=== PATIENT | female | born 1965 | race Asian ===

== ENCOUNTER 2018-06-25 12:28 | Day surgery (SDC) | END 2018-06-25 17:02 | disposition home or self-care (01) ==

== ENCOUNTER 2018-11-10 08:47 | Observation (INO) | payer BC ==
[~2018-11-10] VITALS: Ht 157.5 cm; Wt 64.7 kg
[~2018-11-10 08:47] MED LIST: NO MEDS
[2018-11-10] MEDS ORDERED: NITROGLYCERIN 2% 1 GM OINT PKT TD STA (09:25)
[2018-11-10] MEDS ORDERED: ASPIRIN 81 MG TAB PO STA (09:25)
[2018-11-10] MEDS ORDERED: NITROGLYCERIN (SL) 0.4 MG TAB SL PRN ×2 (09:30→12:30)
[2018-11-10] MEDS ORDERED: ONDANSETRON 4 MG INJ IV PRN ×2 (12:00→12:30)
[2018-11-10] MEDS ORDERED: ACETAMINOPHEN 325 MG TAB PO PRN (12:00)
[2018-11-10] MEDS ORDERED: ALBUTEROL/IPRATROPIUM (NEB) 3 ML AMP HHN PRN (12:30)
[2018-11-10] MEDS ORDERED: MAGNESIUM HYDROXIDE 30ML CUP PO PRN (12:30)
[2018-11-10] MEDS ORDERED: NACL 0.9% 3 ML SYG IV SCH (12:30)
[2018-11-10] MEDS ORDERED: hydrALAzine 20 MG INJ IV PRN (12:30)
[2018-11-10] MEDS ORDERED: HYDROCODONE/APAP (5/325) TAB PO PRN (12:30)
[2018-11-10] MEDS ORDERED: morphine 2 MG INJ IV PRN (12:30)
[2018-11-10] MEDS ORDERED: DOCUSATE SODIUM 100 MG CAP PO PRN (12:30)
[2018-11-10] MEDS ORDERED: LORAZEPAM 2 MG INJ IV PRN (12:30)
--- NOTE | 2018-11-10 12:35 | ERD ---
ER Documentation Chief Complaint Chief Complaint CHEST PAIN X3 DAYS, RADIATES TO LEFT ARM HPI Patient is a 53-year-old female with high cholesterol presents with chest pain. The patient has left-sided chest pain and left arm pain. She describes it as a "pinching pain". She has shortness of breath as well. She said the symptoms started 3 days ago and have been constant. She denies treatment as of yet. Upon review of old medical records this is the patient's third visit to the ER since 2013. She does not remember the name of her primary doctor. ROS All systems reviewed and are negative except as per history of present illness. Medications Home Meds Discontinued Reported Medications [No Meds] No Conflict Check 06/25/18 Allergies Allergies: Coded Allergies: No Known Allergy (Unverified , 11/10/18) PMhx/Soc History of Surgery: No Anesthesia Reaction: No Hx Neurological Disorder: No Hx Respiratory Disorders: No Hx Cardiac Disorders: No Hx Psychiatric Problems: No Hx Miscellaneous Medical Probl: No Hx Alcohol Use: Yes (OCCASIONAL) Hx Substance Use: No Hx Tobacco Use: No Smoking Status: Never smoker FmHx Family History: No coronary disease Physical Exam Vitals Vital Signs Date Temp Pulse Resp B/P (MAP) Pulse Ox O2 O2 Flow FiO2 Time Delivery Rate 11/10/18 Nasal 09:00 Cannula 11/10/18 97.8 102 16 141/92 100 08:51 (108) Physical Exam Const: No acute distress Head: Atraumatic Eyes: Normal Conjunctiva ENT: Normal External Ears, Nose and Mouth. Neck: Full range of motion. No meningismus. Resp: Clear to auscultation bilaterally Cardio: Regular rate and rhythm, no murmurs Abd: Soft, non tender, non distended. Normal bowel sounds Skin: No petechiae or rashes Back: No midline or flank tenderness Ext: No cyanosis, or edema Neur: Awake and alert Psych: Normal Mood and Affect Result Diagram: 11/10/1892911/10/18929 Results 24 hrs Laboratory Tests Test 11/10/18 09:30 White Blood Count 8.6 10^3/ul Red Blood Count 4.77 10^6/ul Hemoglobin 13.3 g/dl Hematocrit 40.7 % Mean Corpuscular Volume 85.3 fl Mean Corpuscular Hemoglobin 27.9 pg Mean Corpuscular Hemoglobin Concent 32.7 g/dl Red Cell Distribution Width 13.1 % Platelet Count 305 10^3/UL Mean Platelet Volume 9.4 fl Immature Granulocytes % 0.200 % Neutrophils % 61.7 % Lymphocytes % 30.2 % Monocytes % 5.2 % Eosinophils % 2.1 % Basophils % 0.6 % Nucleated Red Blood Cells % 0.0 /100WBC Immature Granulocytes # 0.020 10^3/ul Neutrophils # 5.3 10^3/ul Lymphocytes # 2.6 10^3/ul Monocytes # 0.5 10^3/ul Eosinophils # 0.2 10^3/ul Basophils # 0.1 10^3/ul Nucleated Red Blood Cells # 0.0 10^3/ul Sodium Level 144 mmol/L Potassium Level 3.7 mmol/L Chloride Level 105 mmol/L Carbon Dioxide Level 28 mmol/L Anion Gap 11 Blood Urea Nitrogen 16 mg/dl Creatinine 0.65 mg/dl Est Glomerular Filtrat Rate mL/min > 60 mL/min Glucose Level 76 mg/dl Calcium Level 10.0 mg/dl Troponin I < 0.012 ng/ml Current Medications Medications Dose Sig/Kori Start Time Status Last (Trade) Ordered Route PRN Stop Time Admin Dose Reason Admin Aspirin 162 mg ONCE STAT 11/10/18 DC 11/10/18 (Aspirin) PO 09:25 09:53 11/10/18 09:26 1 inch ONCE STAT 11/10/18 DC 11/10/18 Nitroglycerin TD 09:25 09:53 11/10/18 09:26 (Nitroglyceri n 2% Oint) 1 tab Q5M UP TO 3 11/10/18 11/10/18 Nitroglycerin DOSES PRN 09:30 09:54 SL CHEST (Nitroglyceri PAIN n (Sl Tab) 0.4 Mg) Ondansetron 4 mg ER BRIDGE 11/10/18 HCl (Zofran PRN IV 12:00 Inj) NAUSEA AND/OR 11/11/18 11:59 VOMITING 650 mg ER BRIDGE 11/10/18 Acetaminophen PRN PO MILD 12:00 (Tylenol PAIN(1-3)OR 11/11/18 11:59 Tab) ELEVATED TEMP IV Flush 3 ml PER 11/10/18 UNV (NS 3 ml) PROTOCOL IV 12:30 Ondansetron 4 mg Q6H PRN 11/10/18 UNV HCl (Zofran IV NAUSEA 12:30 Inj) AND/OR VOMITING 650 mg Q6H PRN 11/10/18 UNV Acetaminophen PO PAIN 12:30 (Tylenol LEVEL 1-3 OR Tab) FEVER 1 tab Q6H PRN 11/10/18 UNV Acetaminophen PO MODERATE 12:30 / PAIN LEVEL Hydrocodone 4-6 Bitart ([place] (5/325)) Morphine 2 mg Q4H PRN 11/10/18 UNV Sulfate IV SEVERE 12:30 (morphine) PAIN LEVEL 7-10 Docusate 100 mg Q12H PRN 11/10/18 UNV Sodium PO 12:30 (Colace) CONSTIPATION Magnesium 30 ml DAILY PRN 11/10/18 UNV Hydroxide PO 12:30 (Milk Of Mag) CONSTIPATION Famotidine 20 mg Q12 IV 11/10/18 UNV (Pepcid Iv) 21:00 Heparin 5,000 unit Q12 SC 11/10/18 UNV Sodium 21:00 (Porcine) (Heparin (5000 Units/1ml)) Sodium 1,000 ml @ [id number] IV 11/10/18 UNV Chloride 75 mls/hr 12:27 Lorazepam 0.5 mg Q6H PRN 11/10/18 UNV (Ativan) IV ANXIETY 12:30 Albuterol/ 3 ml Q4H RESP 11/10/18 UNV Ipratropium THERAPY PRN 12:30 (Duoneb) HHN SHORTNESS OF BREATH Hydralazine 10 mg Q6H PRN 11/10/18 UNV HCl IV ELEVATED 12:30 (Apresoline) BLOOD PRESSURE Clonidine 0.1 mg Q6H PRN 11/10/18 UNV (Catapres) PO ELEVATED 12:30 BLOOD PRESSURE 1 tab Q5M PRN 11/10/18 UNV Nitroglycerin SL ANGINA 12:30 (Nitroglyceri n (Sl Tab) 0.4 Mg) Aspirin 325 mg DAILY PO 11/11/18 UNV (Ecotrin) 09:00 Procedures/MDM Chest x-ray negative per radiology. EKG 1 read by me: Rate/Rhythm: Regular rate and rhythm at a normal rate Intervals: Normal Impression: No evidence of ischemia or arrhythmia EKG 2 read by me: Rate/Rhythm: Regular rate and rhythm at a normal rate Intervals: Normal Impression: No evidence of ischemia or arrhythmia Patient is a 53-year-old female who presents with chest pain and arm pain associated with shortness of breath. I am concerned for possible acute coronary syndrome. EKGs and chest x-ray were negative. Initial troponin is normal. The patient will be admitted to the care of the panel team to a telemetry observation bed. I spoke with Dr. Longo. I doubt pneumonia, pneumothorax, pulmonary embolism, or aortic dissection. Departure Diagnosis: Primary Impression: Chest pain Chest pain type: unspecified Qualified Codes: R07.9 - Chest pain, unspecified Condition: PEARL Payan MD Nov 10, 2018 12:35
--- NOTE | 2018-11-10 15:57 | HP ---
Date/Time of Note Date/Time of Note DATE: 11/10/18 TIME: 15:56 Assessment/Plan VTE Prophylaxis SCD applied (from Nsg): No SCD contraindicated: other Pharmacological prophylaxis: heparin Lines/Catheters IV Catheter Type (from Nrsg): Saline Lock Assessment/Plan Hospital Course Assessment and plan: 53-year female with chest pain since for 3 days. #Chest pain: Rule out ACS versus muscular skeletal, versus other. Gastritis less likely, although also on the differential -Admit patient to telemetry, check troponin every 6 hours x3 -Aspirin, morphine, oxygen, nitroglycerin as needed -Follow-up results of echo, as well as A1c, lipid panel, TSH #Gastritis: Continue PPI #High cholesterol: Follow-up lipid panel Result Diagram: 11/10/1830 11/10/18 0930 Results 24hrs Laboratory Tests Test 11/10/18 09:30 11/10/18 12:50 White Blood Count 8.6 Red Blood Count 4.77 Hemoglobin 13.3 Hematocrit 40.7 Mean Corpuscular Volume 85.3 Mean Corpuscular Hemoglobin 27.9 L Mean Corpuscular Hemoglobin Concent 32.7 Red Cell Distribution Width 13.1 Platelet Count 305 Mean Platelet Volume 9.4 Immature Granulocytes % 0.200 Neutrophils % 61.7 Lymphocytes % 30.2 Monocytes % 5.2 Eosinophils % 2.1 Basophils % 0.6 Nucleated Red Blood Cells % 0.0 Immature Granulocytes # 0.020 Neutrophils # 5.3 Lymphocytes # 2.6 Monocytes # 0.5 Eosinophils # 0.2 Basophils # 0.1 Nucleated Red Blood Cells # 0.0 Sodium Level 144 Potassium Level 3.7 Chloride Level 105 Carbon Dioxide Level 28 Anion Gap 11 Blood Urea Nitrogen 16 Creatinine 0.65 Est Glomerular Filtrat Rate mL/min > 60 Glucose Level 76 Calcium Level 10.0 Troponin I < 0.012 < 0.012 Free Thyroxine 0.88 Creatine Kinase 44 Creatine Kinase Index 0.6 Creatinine Kinase MB (Mass) 0.25 HPI/ROS Admit Date/Time Admit Date/Time Hx of Present Illness 53-year-old female past medical history of high cholesterol, gastritis, who is complaining of chest pain. Patient states her symptoms have been gone for the last 3 days. She describes it as a burning type of pain, not pressure-like. She says however has been radiating to her neck and her left arm. She did not take any medicines at home to help relieve the symptoms. Denies any upper or lower GI bleeding, nausea vomiting, fever chills, diarrhea constipation, shortness of breath, no headaches or dizziness or loss of conscious. PMH/Family/Social Past Medical History Medications Current Medications IV Flush (NS 3 ml) 3 ml PER PROTOCOL IV ; Start 11/10/18 at 12:30 Ondansetron HCl (Zofran Inj) 4 mg Q6H PRN IV NAUSEA AND/OR VOMITING; Start at 12:30 Acetaminophen (Tylenol Tab) 650 mg Q6H PRN PO PAIN LEVEL 1-3 OR FEVER; Start 11/10/18 at 12:30 Acetaminophen/ Hydrocodone Bitart ([place] (5/325)) 1 tab Q6H PRN PO MODERATE PAIN LEVEL 4-6; Start 11/10/18 at 12:30 Morphine Sulfate (morphine) 2 mg Q4H PRN IV SEVERE PAIN LEVEL 7-10; Start 11/10/18 at 12:30 Docusate Sodium (Colace) 100 mg Q12H PRN PO CONSTIPATION; Start 11/10/18 at 12 :30 Magnesium Hydroxide (Milk Of Mag) 30 ml DAILY PRN PO CONSTIPATION; Start 11/10/18 at 12:30 Famotidine (Pepcid Iv) 20 mg Q12 IV ; Start 11/10/18 at 21:00 Heparin Sodium (Porcine) (Heparin (5000 Units/1ml)) 5,000 unit Q12 SC ; Start 11/10/18 at 21:00 Sodium Chloride 1,000 ml @ 75 mls/hr [id number] IV ; Start 11/10/18 at 12:27 Lorazepam (Ativan) 0.5 mg Q6H PRN IV ANXIETY; Start 11/10/18 at 12:30 Albuterol/ Ipratropium (Duoneb) 3 ml Q4H RESP THERAPY PRN HHN SHORTNESS OF BREATH; Start 11/10/18 at 12:30 Hydralazine HCl (Apresoline) 10 mg Q6H PRN IV ELEVATED BLOOD PRESSURE; Start 11/10/18 at 12:30 Clonidine (Catapres) 0.1 mg Q6H PRN PO ELEVATED BLOOD PRESSURE; Start 11/10/18 at 12:30 Nitroglycerin (Nitroglycerin (Sl Tab) 0.4 Mg) 1 tab Q5M PRN SL ANGINA; Start 11/10/18 at 12:30 Aspirin (Ecotrin) 325 mg DAILY PO ; Start 11/11/18 at 09:00 Coded Allergies: No Known Allergy (Unverified , 11/10/18) Past Surgical History Past Surgical Hx: no surgical history Family History Significant Family History: other (Mother: Lung cancer ; Father: Spine cancer) Social History Alcohol Use: none Smoking Status: Never smoker Drug Use: none Exam/Review of Systems Vital Signs Vitals Vital Signs Date Temp Pulse Resp B/P (MAP) Pulse Ox O2 O2 Flow FiO2 Time Delivery Rate 11/10/18 98.0 69 151/141 100 Room Air 13:31 (144) 11/10/18 16 08:51 Exam Exam General: Lying in bed, no acute distress Head: Atraumatic Eyes: Normal Conjunctiva ENT: Normal External Ears, Nose and Mouth. Neck: Full range of motion. No meningismus. Resp: Clear to auscultation bilaterally Cardio: Regular rate and rhythm, no murmurs Abd: Soft, non tender, non distended. Normal bowel sounds Ext: No lower extremity edema bilateral Neuro: No focal deficits NAZARIO HENRIQUEZ Nov 10, 2018 15:57
[2018-11-10] MEDS: ACETAMINOPHEN 325 MG TAB PO PRN ×2 (16:49→21:17)
[2018-11-10] MEDS: SOD CHLORIDE 0.45% 1,000 ML IV SCH (16:50)
--- NOTE | 2018-11-10 16:50 | RADRPT ---
Echocardiogram Report Patient Name: DIANE QUEEN Gender: Female Date: 1965 Study Date: 10-Nov-2018 Supervisor Billposting: PEPE Location: ER7 Ref. Physician: NAZARIO HENRIQUEZ Quality: Adequate Procedures: Transthoracic echocardiogram with complete 2D, M-Mode, and doppler examination. Indications: Chest Pain. 2D/M Mode Doppler Measurement Value Normal Ranges Measurement Value Normal Ranges LVIDd 2D 3.8 3.5 - 5.6 cm AV Mean Xavi 0.8 m/sec LVIDs 2D 2.6 2.1 - 4.1 cm AV Mean PG 3.0 mmHg LVPWd 2D 0.8 0.6 - 1.1 cm AV Peak Xavi 1.1 m/sec IVSd 2D 1.1 0.6 - 1.1 cm AV Peak PG 5.0 mmHg AoR Diam 2D 2.8 2.0 - 3.7 cm AV VTI 23.7 cm LA/Ao 2D 1 0 - 1 LVOT Mean Xavi 0.5 m/sec EF 2D 61.0 50.0 - 65.0 % LVOT Mean PG 1.0 mmHg LA Dimen 2D 3.0 2.3 - 4.0 cm LVOT Peak Xavi 0.7 m/sec IVC Diam 1.5 1.2 - 2.0 LVOT Peak PG 2.0 mmHg MV E Peak Xavi 0.7 m/sec MV A Peak Xavi 0.6 m/sec MV E/A 1.1 MV PHT 45.0 msec MV Decel Time 155 msec MV Decel Dougherty 4 MV E/A 1.1 MV PHT 45.0 msec MVA PHT 4.9 cm2 TAPSE 1.4 cm TR Peak Xavi 2.1 m/sec TR Peak PG 18.0 mmHg RVSP 21.0 mmHg RA Pressure 3.0 Findings Left Ventricle: Normal left ventricular systolic function. Normal left ventricular cavity size. Sigmoid septum. Ejection fraction is visually estimated at 55 %. Tissue Doppler/Mitral Doppler indices are within normal limits. Right Ventricle: Normal right ventricular size. Normal right ventricular systolic function. Left Atrium: The left atrium is normal in size. Right Atrium: The right atrium is normal in size. RA Pressure=3. Mitral Valve: Normal appearance and function of the mitral valve with trace physiologic regurgitation. Aortic Valve: Normal appearance of the aortic valve. No significant aortic stenosis or insufficiency. Tricuspid Valve: Normal appearance of the tricuspid valve. Estimated peak PA systolic pressure 21 mmHg. There is trace to mild tricuspid regurgitation. Pulmonic Valve: Normal pulmonic valve appearance. There is trace pulmonic regurgitation. Pericardium: Normal pericardium with no significant pericardial effusion. Pleural effusion seen. Aorta: Normal aortic root. IVC: Normal size and normal respiratory collapse consistent with normal right atrial pressure. Conclusions Normal left ventricular systolic function. Normal left ventricular cavity size. Sigmoid septum. Ejection fraction is visually estimated at 55 %. Tissue Doppler/Mitral Doppler indices are within normal limits. Normal appearance and function of the mitral valve with trace physiologic regurgitation. Normal appearance of the aortic valve. No significant aortic stenosis or insufficiency. Normal appearance of the tricuspid valve. Estimated peak PA systolic pressure 21 mmHg. There is trace to mild tricuspid regurgitation. Electronically Signed By: Aaron Castillo 10-Nov-2018 16:49:50 -0800 Patient Name: DIANE QUEEN Study Date: 10-Nov-2018 [id number]
[2018-11-10 17:19] VITALS: PULSE 64
[2018-11-10 17:25] VITALS: Ht 157.5 cm; Wt 64.7 kg
[2018-11-10] MEDS: PANTOPRAZOLE (EC) 40 MG TAB PO SCH (18:17)
[2018-11-10 19:49] VITALS: BP 104/67; PULSE 71; RESP 18
[2018-11-10 20:00] VITALS: PULSE 74
[2018-11-10] MEDS: FAMOTIDINE 20 MG INJ IV SCH (21:06)
[2018-11-10] MEDS: HEPARIN 5,000 UNIT/1 ML VIAL SC SCH (21:13)
[2018-11-11] VITALS: BP 101/66; PULSE 71; PULSE 72; RESP 18
[2018-11-11] MEDS: SOD CHLORIDE 0.45% 1,000 ML IV SCH (01:47)
[2018-11-11 04:00] VITALS: BP 106/63; PULSE 82; RESP 18
[2018-11-11] MEDS: PANTOPRAZOLE (EC) 40 MG TAB PO SCH (06:39)
[2018-11-11 07:07] VITALS: BP 129/76; PULSE 85; RESP 22
[2018-11-11 08:01] VITALS: PULSE 83
[2018-11-11] MEDS: FAMOTIDINE 20 MG INJ IV SCH (08:58)
[2018-11-11] MEDS ORDERED: ASPIRIN (EC) 325 MG TAB PO SCH (09:00)
[2018-11-11] MEDS: HEPARIN 5,000 UNIT/1 ML VIAL SC SCH (09:09)
[2018-11-11] MEDS: ACETAMINOPHEN 325 MG TAB PO PRN (09:14)
--- NOTE | 2018-11-11 09:45 | PDOCDIS ---
Discharge Instructions CONDITION [id number] Patient Condition: [id number] Stable HOME CARE INSTRUCTIONS: [id number] Special Diet: [id number] low fat/chol ACTIVITY: [id number] Activity Restrictions: [id number] Slowly Increase Activity Rest between Activity Avoid heavy lifting FOLLOW UP/APPOINTMENTS Follow-up Plan Please take your medications as prescribed. Please see your doctor in the clinic in the next 1-2 weeks. NAZARIO HENRIQUEZ Nov 11, 2018 09:45
[2018-11-11] MEDS ORDERED: PANT40TA4 PO (09:46)
--- NOTE | 2018-11-11 09:49 | DS ---
Date/Time of Note Date/Time of Note DATE: 11/11/18 TIME: 09:47 Discharge Summary Admission/Discharge Info Admit Date/Time Nov 10, 2018 at 11:58 Discharge Date/Time Discharge Diagnosis #Chest pain: Ruled out for ACS #Gastritis: Continue PPI #High cholesterol Patient Condition: Stable Procedures 2D echo November 10 2018: Conclusions Normal left ventricular systolic function. Normal left ventricular cavity size. Sigmoid septum. Ejection fraction is visually estimated at 55 %. Tissue Doppler/Mitral Doppler indices are within normal limits. Normal appearance and function of the mitral valve with trace physiologic regurgitation. Normal appearance of the aortic valve. No significant aortic stenosis or insufficiency. Normal appearance of the tricuspid valve. Estimated peak PA systolic pressure 21 mmHg. There is trace to mild tricuspid regurgitation. Hx of Present Illness 53-year-old female past medical history of high cholesterol, gastritis, who is complaining of chest pain. Patient states her symptoms have been gone for the last 3 days. She describes it as a burning type of pain, not pressure-like. She says however has been radiating to her neck and her left arm. She did not take any medicines at home to help relieve the symptoms. Denies any upper or lower GI bleeding, nausea vomiting, fever chills, diarrhea constipation, shortness of breath, no headaches or dizziness or loss of conscious. Hospital Course So patient was admitted to telemetry floor. She ruled out for acute coronary syndrome. Her A1c and lipid panel overall appear to be in normal limits as well. She was resumed on PPI which she had been taking intermittently at home for prior history of gastritis. Over the course of her hospital stay her chest pain symptoms subsided for the most part, she was able to ambulate, tolerated p.o. diet. Vital signs were stable as well. She will be discharged home today in improved condition. See below for full list of discharge medications. Home Meds Active Scripts Pantoprazole* (Pantoprazole*) 40 Mg Tablet., 40 MG PO DAILY, #30 1 Refill Prov:NAZARIO HENRIQUEZ 11/11/18 Discontinued Reported Medications [No Meds] No Conflict Check 06/25/18 Follow-up Plan Please take your medications as prescribed. Please see your doctor in the clini c in the next 1-2 weeks. Primary Care Provider Not On Staff Doctor Time spent on discharge: > 30 minutes Pending Labs Laboratory Tests Test 11/10/18 12:50 11/10/18 18:50 11/11/18 00:31 11/11/18 06:20 Creatine 44 38 40 38 Kinase IU/L (23-200) IU/L (23-200) IU/L (23-200) IU/L (23-200) Creatine Kinase 0.6 0.6 0.6 0.6 Index Creatinine 0.25 < 0.22 0.24 < 0.22 Kinase MB ng/ml (0.0-2.4) ng/ml (0.0-2.4 ng/ml (0.0-2.4 ng/ml (0.0-2.4 (Mass) ) ) ) Troponin I < 0.012 < 0.012 < 0.012 < 0.012 ng/ml (0.000-0. ng/ml (0.000-0 ng/ml (0.000-0 ng/ml (0.000-0 120) .120) .120) .120) White Blood 11.0 Count 10^3/ul (4.8-1 0.8) Red Blood 4.41 Count 10^6/ul (4.20- 5.40) Hemoglobin 12.4 g/dl (12.0-16. 0) Hematocrit 37.7 % (37.0-47.0) Mean 85.5 Corpuscular fl (82.0-101.0 Volume ) Mean 28.1 Corpuscular pg (29.0-33.0) Hemoglobin Mean 32.9 Corpuscular g/dl (32.0-37. Hemoglobin Conc 0) ent Red Cell 13.2 Distribution % (11.5-14.5) Width Platelet Count 293 10^3/UL (140-4 15) Mean Platelet 9.3 Volume fl (7.4-10.4) Immature 0.300 Granulocytes % % (0.001-0.429 ) Neutrophils % 65.1 % (39.0-77.0) Lymphocytes % 25.0 % (15.0-51.0) Monocytes % 6.8 % (0.0-11.0) Eosinophils % 2.3 % (0.0-7.0) Basophils % 0.5 % (0.0-2.0) Nucleated Red 0.0 Blood Cells % /100WBC (0.0-0 .0) Immature 0.030 Granulocytes # 10^3/ul (0.0-0 .031) Neutrophils # 7.2 10^3/ul (1.6-7 .5) Lymphocytes # 2.7 10^3/ul (0.8-2 .9) Monocytes # 0.7 10^3/ul (0.3-0 .9) Eosinophils # 0.3 10^3/ul (0.0-0 .5) Basophils # 0.1 10^3/ul (0.0-0 .1) Nucleated Red 0.0 Blood Cells # 10^3/ul (0.0-0 .0) Sodium Level 141 mmol/L (135-14 4) Potassium 4.4 Level mmol/L (3.5-5. 1) Chloride Level 104 mmol/L (97-110 ) Carbon Dioxide 27 Level mmol/L (21-31) Anion Gap 10 (5-13) Blood Urea 13 Nitrogen mg/dl (7-20) Creatinine 0.66 mg/dl (0.44-1. 00) Est Glomerular > 60 Filtrat mL/min (>60) Rate mL/min Glucose Level 92 mg/dl (70-220) Hemoglobin A1c 5.2 % (0-5.9) Calcium Level 9.2 mg/dl (8.4-10. 2) Phosphorus 3.8 Level mg/dl (2.5-4.9 ) Magnesium 2.2 Level mg/dl (1.7-2.5 ) Triglycerides 130 Level mg/dl (0-149) Cholesterol 202 Level mg/dl (100-200 ) LDL 125 mg/dl Cholesterol, Calculated HDL 51 Cholesterol mg/dl (37-92) Cholesterol/HDL 3.9 RATIO Ratio Thyroid 1.660 Stimulating MIU/L (0.465-4 Hormone (TSH) .680) NAZARIO HENRIQUEZ Nov 11, 2018 09:49
== END 2018-11-11 11:20 | disposition home or self-care (01) ==
LOC: E/R 08:47 → TEL 11:58
PROVIDERS: ADMIT Hospitalist; ATTEND Hospitalist
DX: R07.9 Chest pain, unspecified (principal); E78.00 Pure hypercholesterolemia, unspecified; K29.70 Gastritis, unspecified, without bleeding
CPT/HCPCS: 36415; 71045; 80048; 80061; 82550; 82553; 83036; 83735; 84100; 84439; 84443; 84484; 85025; 93005; 93306; J1644; J2060; Z7500; Z7502; Z7610; G0378